=== PATIENT | male | born 1940 | race Caucasian/White ===

== ENCOUNTER → 2018-07-08 | Outpatient (CLI) | payer OTHER | LOC: BHFA 14:00 | PROVIDERS: ATTEND Internal Medicine Cardiovascular Disease | DX: I25.10 Atherosclerotic heart disease of native coronary artery without angina pectoris (principal) ==

== ENCOUNTER 2018-08-04 09:08 | Day surgery (SDC) | payer OTHER ==
[2018-08-04] MEDS ORDERED: diphenhydrAMINE 25 MG CAP PO ONE (09:16)
[2018-08-04] MEDS ORDERED: BACITRACIN IRRIGATION/NS 50,000 UNITS/1,000 ML BTL IRR ONE (09:16)
[2018-08-04] MEDS ORDERED: NS 1,000 ML IV ONE (09:16)
[2018-08-04] MEDS ORDERED: ceFAZolin 2 GM/DEXTROSE 100 ML IV ONE (09:16)
[2018-08-04] MEDS ORDERED: DIAZEPAM 5 MG TAB PO ONE (09:16)
[2018-08-04 10:03] LABS: PLATELET COUNT 142 10^3/uL (150-400)
[2018-08-04 10:07] LABS: INR 1.11 (0.83-1.16); PROTIME(PATIENT) 14.5 SEC (12.0-15.0)
[2018-08-04] MEDS ORDERED: BUPIVACAINE 0.75% 10 ML SDV ONE (11:51)
[2018-08-04] MEDS ORDERED: LIDOCAINE 1% 300 MG/30 ML SDV ONE (11:51)
--- NOTE | 2018-08-04 12:02 | PDGENHP ---
History & Physical Chief Complaint: cardiomyopathy Relevant Physical Exam: s1s2 rrr cta ao3 Cardiorespiratory Assessment: for icd generator change
[2018-08-04] MEDS ORDERED: MIDAZOLAM 2 MG/2 ML VIAL ONE (12:04)
[2018-08-04] MEDS ORDERED: PROPOFOL/EMULSION 500 MG/50 ML BOTTLE IV ONE (12:08)
[2018-08-04] MEDS ORDERED: MIDAZOLAM 2 MG/2 ML VIAL IVP ONE (12:12)
[2018-08-04] MEDS ORDERED: HYDROmorphONE/DILAUDID 2 MG/ML INJ IVP PRN (12:13)
[2018-08-04] MEDS ORDERED: DEXAMETHASONE 4 MG/ML VIAL IVP PRN (12:13)
[2018-08-04] MEDS ORDERED: ACETAMINOPHEN 500 MG TAB PO PRN (12:13)
[2018-08-04] MEDS ORDERED: fentaNYL 100 MCG/2 ML INJ IVP PRN (12:13)
[2018-08-04] MEDS ORDERED: NALOXONE HCL 0.4 MG/ML INJ IVP PRN (12:13)
[2018-08-04] MEDS ORDERED: ONDANSETRON 4 MG/2 ML VIAL IVP PRN (12:13)
--- NOTE | 2018-08-04 12:14 | PDANEPAE ---
ANE History of Present Illness ICD Gen Change ANE Past Medical History - Cardiovascular History Hx Hypertension: Yes Hx Coronary Artery / Peripheral Vascular Disease: Yes Hx CHF / Valvular Disease: Yes - Pulmonary History Hx COPD: No Hx Asthma/Reactive Airway Disease: No Hx Sleep Apnea: Yes ANE Review of Systems Review of Systems: ANE Patient History - Allergies Allergies/Adverse Reactions: No Known Allergies Allergy (Unverified 02/27/15 12:28) - Home Medications Home Medications: Allopurinol 100 MG (*) 100 mg PO DAILY 08/04/18 [Last Taken 08/04/18 08:00] Aspirin 325 mg (*) 325 mg PO DAILY 08/04/18 [Last Taken 07/30/18 08:00] Benadryl 25 MG (*) 25 mg PO HS 08/04/18 [Last Taken 08/03/18 22:00] Co Q-10 100 mg Softgel 100 mg PO DAILY 08/04/18 [Last Taken 08/03/18 18:00] Diovan 160 mg PO DAILY 08/04/18 [Last Taken 08/04/18 08:00] Eliquis 2.5 mg PO BID 08/04/18 [Last Taken 08/01/18 08:00] Fluticasone Nasal 1 spray EACHNARE DAILY PRN 08/04/18 [Last Taken 08/03/18 08:00 ] Lipitor 40 mg (*) 40 mg PO DAILY 08/04/18 [Last Taken 08/03/18 18:00] Lutein 6 mg PO DAILY 08/04/18 [Last Taken 07/31/18 08:00] Magnesium 400 mg PO DAILY 08/04/18 [Last Taken 08/03/18 08:00] Multivitamin (*) 1 PO DAILY 08/04/18 [Last Taken 08/03/18 08:00] Norvasc 5 mg (*) 5 mg PO DAILY 08/04/18 [Last Taken 08/03/18 08:00] Selenium 200mcg (*) 200 mg PO 08/04/18 [Last Taken 07/30/18 08:00] Sensipar 30 mg PO DAILY 08/04/18 [Last Taken 08/03/18 08:00] Vitamin D3 2000 units tab (OTC) 2,000 units PO DAILY 08/04/18 [Last Taken 08:00] Vitamin E Acetate 400 mg PO 08/04/18 [Last Taken 07/30/18 08:00] - Smoking Hx Smoking Status: Former smoker ANE Labs/Vital Signs - Labs Result Diagrams: 08/04/18 09:50 08/04/18 09:50 - Vital Signs Height: 167.5 cm Weight: 78.2 kg ANE Physical Exam - Airway Neck exam: FROM Mallampati Score: Class 2 - Pulmonary Pulmonary: clear to auscultation - Cardiovascular Cardiovascular: regular rate and rhythym - ASA Status ASA Status: III ANE Anesthesia Plan Anesthesia Plan: GA with mask
[2018-08-04] MEDS ORDERED: fentaNYL 100 MCG/2 ML INJ ONE (12:28)
[2018-08-04] MEDS ORDERED: ONDANSETRON 4 MG/2 ML VIAL ONE (12:39)
--- NOTE | 2018-08-04 13:24 | EPPROC ---
Electrophysiology Procedure Note: PROCEDURE PERFORMED: 1. AV ICD generator change INDICATION: ICD generator at KARINA Bradycardia PROCEDURE NOTE: Patient presented to the cardiac catheterization laboratory in a fasting, postabsorptive state. Dr. Reno administered sedation. The left infraclavicular area was prepped and draped in the usual sterile fashion. Lidocaine plus bupivacaine was used for local anesthesia. Using a combination of blunt and sharp dissection and electrocautery, the dissection was carried down to the prepectoral fascia and the existing pacemaker pocket was opened. The pacemaker generator was disconnected from the leads and the lead thresholds and impedance were checked. The pacemaker pocket was copiously irrigated with antibiotic solution. The pocket was again inspected for any bleeding. The leads were attached to the pacemaker securely. The pacemaker was inserted into the pocket and secured in place with a nonabsorbable suture. The pacemaker pocket was closed in 3 layers with absorbable monocryl sutures and malcolm. Appropriate dressing was applied. The patient left the cardiac catheterization laboratory in stable condition. Serial Numbers: 1. Device Medtronic Evera XT [id number] 2. Atrial Lead Medtronic 5076-52 [id number] 3. Ventricular Lead Medtronic 6947-65 [id number] Stimulation Thresholds & Impedance Measurements: 1. Atrial Lead P 5.6 mV 456 ohm 0.75 V 0.4 ms 2. Ventricular Lead R 18.3 mV 418 ohm HVB 47 ohm HVX 58 ohm 1 V 0.4 ms Lucas Pacing Parameters 1. Pacing mode AAI - DDD 2. Lower rate 50 ppm 3. Upper tracking rate 130 ppm 4. Upper sensor rate 130 ppm ICD Therapies DFT testing not done VF 200 bpm 35 J x 6 VT 176 bpm Burst 85% 12 bts 3 sequences, 35 J x 6 Patient Problems: Problems Problem Status Onset Cardiomyopathy Acute
--- NOTE | 2018-08-06 11:54 | CPEKG ---
Test Reason : OPEN Blood Pressure : / mmHG Vent. Rate : 055 BPM Atrial Rate : 055 BPM P-R Int : 225 ms QRS Dur : 104 ms QT Int : 430 ms P-R-T Axes : 012 -65 -74 degrees QTc Int : 412 ms Sinus rhythm Prolonged MT interval Left anterior fascicular block Nonspecific T abnormalities, diffuse leads Confirmed by José Miguel Dhillon ([id number]) on 08/06/2018 11:54:06 AM Referred By: Confirmed By:José Miguel Dhillon
== END 2018-08-04 16:42 | disposition home or self-care (01) ==
LOC: FCATH 09:08
PROVIDERS: ATTEND Internal Medicine Cardiovascular Disease
PROC: 0JH608Z Insertion of Defibrillator Generator into Chest Subcutaneous Tissue and Fascia, Open Approach (ICD-10-PCS; principal; 2018-08-04)
DX: T82.111A Breakdown (mechanical) of cardiac pulse generator (battery), initial encounter (principal); R00.1 Bradycardia, unspecified
CPT/HCPCS: C1721; J0690; J2250; J2405; J2704; J3010